=== PATIENT | female | born 1970 | race Caucasian/White ===

== ENCOUNTER 2018-03-19 20:33 | Emergency (ER) | payer MEDICAID ==
[~2018-03-19] VITALS: Ht 170.2 cm; Wt 93.0 kg
[~2018-03-19 20:33] MED LIST: ALBU8.5H8 IH; CLON-528 PO; CODE118S2 PO; CYCL-1 PO; FLUC150T5 PO; IBUP-1984 PO; LEVO50TA67 PO; MEDR150V IM; METH5TAB4 PO; OMEP-84 PO; PSEU-250 PO; PSEU120T43 PO; TOP25T PO; TRAM50TA2 PO
[2018-03-19 20:50] VITALS: BP 175/89
== END 2018-03-19 23:23 | disposition home or self-care (01) ==
LOC: ER 20:33
DX: J02.9 Acute pharyngitis, unspecified (principal); J44.9 Chronic obstructive pulmonary disease, unspecified; E03.9 Hypothyroidism, unspecified; G89.29 Other chronic pain; Z90.89 Acquired absence of other organs; Z56.0 Unemployment, unspecified; Z98.890 Other specified postprocedural states; Z88.8 Allergy status to other drugs, medicaments and biological substances; Z88.6 Allergy status to analgesic agent; Z79.899 Other long term (current) drug therapy
CPT/HCPCS: 87081; 87880; 99284